=== PATIENT | male | born 1975 | race Caucasian/White ===

== ENCOUNTER 2022-12-25 10:59 | Day surgery (SDC) | payer BC, SELFPAY ==
[2022-12-25] MEDS: LACTATED RINGERS 1,000 ML 150 ML IV (11:13)
[2022-12-25 11:26] VITALS: BP 119/76; PULSE 58; RESP 18; TEMP 36.2; O2SAT 98
--- NOTE | 2022-12-25 12:03 | PM.HP.1 ---
History of Present Illness History of Present Illness Date Patient Seen: 12/25/22 Time Patient Seen: 12:03 Chief complaint: Screening Colonoscopy Narrative: 47-year-old male who presents today for a screening colonoscopy. 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 Has no family history of colon cancer and no concerning symptoms no bleeding or changes in bowel habits. He has no other questions PFSH Social History household members: spouse Smoking Status: Never smoker alcohol intake: never Meds Home Medications and Allergies Allergies Allergy/AdvReac Type Severity Reaction Status Date / Time No Known Drug Allergies Allergy Unverified 12/25/22 11:16 Exam Vital Signs (past 8 hours): - 12/25/22 11:26 Temperature 97.2 F L Pulse Rate 58 L Respiratory Rate 18 Blood Pressure 119/76 Pulse Oximetry 98 Oxygen Delivery Method Room Air Oxygen Delivery Method Room Air Const General: cooperative, healthy appearing and comfortable Nutritional Appearance: thin Eyes General: appearance normal, both eyes and all related structures Resp Effort & Inspection: normal respiratory effort and able to speak in complete sentences GI Palpation: soft and No tender Assessment & Plan Assessment and plan (1) Screening for colon cancer: Status: Acute Assessment & Plan narrative: Presents today for screening colonoscopy I discussed the risks benefits and alternatives including but not limited to perforation of the colon and an incomplete exam he fully understands these risks and would like to proceed.
[2022-12-25 12:53] VITALS: BP 103/64; PULSE 53; RESP 12; TEMP 36.2; O2SAT 98
[2022-12-25 12:57] VITALS: BP 105/63; PULSE 63; RESP 16; O2SAT 99
[2022-12-25 13:01] VITALS: BP 103/75; PULSE 55; RESP 17; O2SAT 100
[2022-12-25 13:05] VITALS: BP 108/70; PULSE 45; RESP 12; TEMP 36.2; O2SAT 100
--- NOTE | 2022-12-25 16:58 | PM.OP.COLON ---
Operative Date/Time/Diagnoses Date of procedure: 12/25/22 Pre-op diagnosis: Screening for colon cancer, average risk. Post-op diagnosis: same Procedure & Clinicians Study performed: Colonoscopy Same procedure as scheduled: Yes Indications: Screening for colon cancer Surgeon: Kisha Gibbons Procedure Notes Procedure in detail: Patient was taken to the endoscopy suite and placed in a left lateral decubitus position. A time-out was performed. With the help of Dr. Holloway conscious sedation was induced and maintained throughout the case. A digital rectal exam was performed. There were no masses or strictures. The colonoscope was introduced into the anal canal and advanced through to the cecum. A photograph of the appendiceal orifice was obtained. Scope was then slowly withdrawn for 15 minutes. No polyps were seen. There were minimal diverticula. The scope was then retroflexed and the hemorrhoidal piles appeared normal. Overall a normal exam and no polyps were seen. Patient tolerated the procedure well and went in good condition to the postoperative care unit. Complications: none Post-procedure Recommendations: Colonoscopy in 10 years Plan for aftercare: Unless patient develops a family history of colon cancer or any concerning symptoms follow-up for the sake of screening can be in 10 years.
== END 2022-12-25 13:15 | disposition home or self-care (01) ==
PROVIDERS: PCP Family Medicine; Referring Provider Surgery; Visit Provider Surgery
PROC: 0DJD8ZZ Inspection of Lower Intestinal Tract, Via Natural or Artificial Opening Endoscopic (ICD-10-PCS; CPT 45378; principal; 2022-12-25 11:45)
DX: Z12.11 Encounter for screening for malignant neoplasm of colon (principal)
CPT/HCPCS: 45378; J2704